=== PATIENT | male | born 1985 | race Caucasian/White ===

== ENCOUNTER 2023-03-29 20:21 | Emergency (ER) | payer SELFPAY ==
[2023-03-29 20:35] VITALS: BP 152/95; PULSE 91; RESP 16; TEMP 36.6; O2SAT 99; BMI 32.8
--- NOTE | 2023-03-29 22:21 | ED_ITS ---
HPI - Back Pain/Injury General: Chief Complaint: Back Pain/Injury Stated Complaint: rash all over, back pain Time Seen by Provider: 03/29/23 21:09 Source: patient Mode of arrival: ambulatory Limitations: no limitations History of Present Illness: 38-year-old male states he was chopping wood 2 days ago states that since then he has had poison jayleen to his arms and back he states he also believes he str ained his low back he had low back pain especially with movement and standing. He rates his pain a 6 out of 10 it is also worse with twisting improved with rest. Denies any bowel or bladder incontinence he is able to ambulate. Associated symptoms: Deny abdominal pain, chills, fever(s), nausea or vomiting Review of Systems Const: Denies: fever(s), chills, body aches or change in appetite ENMT: Denies: throat pain or dental pain Card: Denies: chest pain Resp: Denies: dyspnea GI: Denies: abdominal pain, nausea, vomiting or diarrhea Musc: Reports: back pain; Denies: neck pain Skin/Breast: Reports: rash Neuro: Denies: headache(s) Physical Exam Const: COMMON NORMALS: no acute distress, patient oriented x3 and healthy appearing HENMT: COMMON NORMALS: normocephalic and atraumatic HEAD & SCALP: normocephalic and atraumatic Neck/C-Spine: COMMON NORMALS: full ROM and supple Resp: COMMON NORMALS: normal respiratory effort Cardio: COMMON NORMALS: regular rate RATE: regular rate Back/Pelvis: OTHER: Paraspinal tenderness now low back no midline back pain Extremity: COMMON NORMALS: full ROM Neuro: COMMON NORMALS: patient oriented x3, moves all extremities and no focal motor deficits Psych: COMMON NORMALS: mental status grossly normal, Normal thought process present and cooperative THOUGHT PROCESS: Normal thought process present Skin: COMMON NORMALS: no wounds NARRATIVE SKIN EXAM: Poison jayleen appearing rash to face and arms Course Vital Signs: Vital signs: Vital Signs Temperature 97.9 F 03/29/23 20:35 Pulse Rate 91 03/29/23 20:35 Respiratory Rate 16 03/29/23 20:35 Blood Pressure 152/95 03/29/23 20:35 Pulse Oximetry 99 03/29/23 20:35 Oxygen Delivery Me thod Room Air 03/29/23 20:35 MDM - Back Pain/Injury Medical Decision Making Patient presents here with rashes likely poison jayleen we will give him Decadron and Kenalog here. He also has low back strain we will prescribe him Naprosyn Robaxin he has no signs of cord compression or bony injury. He is to follow-up with PCP and return if worsening. Medical Records I reviewed the patient's medical records. No radiology studies performed this visit Discharge Plan Discharge Patient Disposition: Home Clinical Impression: Strain of lumbar region, Poison jayleen Condition: Stable Prescriptions: New methocarbamol 750 mg tablet 750 mg PO Q6H PRN (Reason: spasms) Qty: 20 0RF Naprosyn 500 mg tablet 500 mg PO BID PRN (Reason: pain) Qty: 20 0RF Discharge Orders: Discharge ED (Routine); Ordered 03/29/23 Ordered By: Hilda Nascimento Referrals: Romel Kim DO [Primary Care Provider] - 4-7 days Discharge Diet: Advance as tolerated Discharge Activity: Resume usual activity Patient Instructions: Poison Jayleen (ED), Low Back Strain (ED) Coding Level of Care Code ED [employer] for Andres Shelton
[2023-03-29] MEDS: triamcinolone 40 mg/mL SDV 80 MG IM (22:24)
[2023-03-29] MEDS: dexamethasone 10 mg/mL INJ IM (22:24)
[2023-03-29] MEDS: methocarbamol 750 mg Tablet 1500 MG PO (22:25)
[2023-03-29] MEDS: HYDROcodone-acetaminophen 7.5-325 mg Tablet 1 TAB PO (22:25)
[2023-03-29 22:35] VITALS: BP 152/95; PULSE 91; RESP 16; TEMP 36.6; O2SAT 99
== END 2023-03-29 22:36 | disposition home or self-care (01) ==
PROVIDERS: Emergency Provider Emergency Medicine; PCP Electrodiagnostic Medicine
DX: L23.7 Allergic contact dermatitis due to plants, except food (principal); S39.012A Strain of muscle, fascia and tendon of lower back, initial encounter; X58.XXXA Exposure to other specified factors, initial encounter
CPT/HCPCS: 96372; 99284; J1100; J3301